=== PATIENT | female | born 1950 | race Caucasian/White ===

== ENCOUNTER 2023-08-25 20:38 | Emergency (ER) | payer BC ==
--- NOTE | 2023-08-25 20:52 | ED Physician Documentation ---
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 He had a fall this morning and fell on top of her. She did hit her head, but denies any headache. Progressively though through the day she has had foot and ankle pain and she cannot bear weight. No other injuries. PD PAST MEDICAL HISTORY - Past Medical History Past Medical History: Yes Neuro: Multiple sclerosis - Past Surgical History Past Surgical History: No - Allergies Allergies/Adverse Reactions: Allergies Allergy/AdvReac Type Severity Reaction Status Date / Time procaine [From Novocain] Allergy Dizziness Verified 08/25/23 20:46 Sulfa (Sulfonamide Allergy Rash Verified 08/25/23 20:46 Antibiotics) - Social History Does the pt smoke?: No Smoking Status: Never smoker PD ED PE NORMAL - Vitals Vital signs reviewed: Yes - General General: Alert and oriented X 3, No acute distress - Extremities Extremities: Other (Mild tenderness over the lateral malleolus of the left ankle and also tender over the calcaneus. The remainder of the foot is nontender as is the proximal fibula.) - Neuro Neuro: Alert and oriented X 3, Normal speech Results - Vitals Vitals: Vital Signs - 24 hr 08/25/23 08/25/23 20:43 21:52 Temperature 36.8 C 36.2 C L Heart Rate 96 88 Respiratory 20 16 Rate Blood Pressure 158/80 H 154/67 H O2 Saturation 100 98 Oxygen O2 Source Room air - Rads (name of study) Anle and calcaneus XR-see MDM Relevant Findings:: Final report received, EMP independent interpretation of test PD Medical Decision Making - ED course ED course: She presents with injury L ankle/heel. I felt imaging was neg, given crutches/boot. After discharge radiology said maybe distal fib frx. LVM with patient regarding this and gave phone number for ortho with recommended followup in ortho clinic ~1 week. Departure - Departure Disposition: 01 Home, Self Care Clinical Impression: Ankle injury Condition: Good Record reviewed to determine appropriate education?: Yes Instructions: ED Sprain Ankle W X Ray Comments: Tylenol and/or ibuprofen as needed for pain. Ice and elevate. Follow-up with your doctor in a week if not better, return for new or worsening symptoms. Forms: PCP List Discharge Date/Time: 08/25/23 21:52
[2023-08-25 21:58] VITALS: BP 154/67; O2SAT 98
--- NOTE | 2023-08-25 23:02 | XRAY Report ---
PROCEDURE: Ankle 3+V LT INDICATIONS: foot / ankle inj TECHNIQUE: 3 views of the ankle were acquired. COMPARISON: None. FINDINGS: Bones: Diffuse osteopenia. There is a transverse lucency over the distal aspect of the left medial m alleolus. This may represent possible nondisplaced fracture versus overlapping trabeculation. No sign ificant overlying soft tissue edema. No dislocations. Ankle mortise is normally aligned. No suspici ous bony lesions. Soft tissues: No tibiotalar joint effusion. Achilles tendon appears normal. IMPRESSION: Moderate diffuse osteopenia. Transverse lucency over the distal aspect of the left medial malleolus w hich may represent a nondisplaced fracture versus overlapping trabeculation as there is minimal overl nadine soft tissue swelling. Recommend clinical correlation for point tenderness in this region. Otherwise, if there is persistent clinical concern for a radiographically occult fracture, recommend immobilization and repeat imaging in 10 to 14 days. Reviewed by: Soren Trinidad MD on 08/25/2023 11:00 PM PDT Approved by: Soren Trinidad MD on 08/25/2023 11:00 PM PDT Station ID: [id number]
--- NOTE | 2023-08-25 23:04 | XRAY Report ---
PROCEDURE: Calcaneus 2+V LT INDICATIONS: foot / ankle inj TECHNIQUE: Two views of the calcaneus were acquired. COMPARISON: None. FINDINGS: Bones: Diffuse osteopenia. No definite fractures or dislocations. No suspicious bony lesions. Soft tissues: No suspicious calcifications. Achilles tendon appears normal. IMPRESSION: Diffuse osteopenia. No definite acute fractures seen . If there is persistent clinical concern for a radiographically occult fracture, recommend immobilizat ion and repeat imaging in 10 to 14 days. Reviewed by: Soren Trinidad MD on 08/25/2023 11:02 PM PDT Approved by: Soren Trinidad MD on 08/25/2023 11:02 PM PDT Station ID: [id number]
== END 2023-08-25 21:52 | disposition home or self-care (01) ==
LOC: ED 20:38
DX: S99.812A Other specified injuries of left ankle, initial encounter (principal); W50.0XXA Accidental hit or strike by another person, initial encounter; G35 Multiple sclerosis
CPT/HCPCS: 99283; 99284

== ENCOUNTER 2023-09-08 20:02 | Outpatient (CLI) | payer BC | END 2023-09-08 23:59 | disposition EMS.NT | LOC: EMS 20:02 | DX: R53.81 Other malaise (principal) ==

== ENCOUNTER 2023-10-13 12:31 | Outpatient (CLI) | payer BC ==
--- NOTE | 2023-10-13 16:53 | XRAY Report ---
PROCEDURE: Chest 2V INDICATIONS: LUNG CA TECHNIQUE: 2 views of the chest were acquired. COMPARISON: None. FINDINGS: Surgical changes and devices: None. Lungs and pleura: No pleural effusions or pneumothorax. Lungs are clear. COPD Mediastinum: Mediastinal contours appear normal. Heart size is normal. Bones and chest wall: No suspicious bony lesions. Convex left scoliosis of the visualized lumbar spi ne. Overlying soft tissues appear unremarkable. IMPRESSION: No acute cardiopulmonary process. Reviewed by: Lavonne Benitez MD, PhD on 10/13/2023 4:51 PM PDT Approved by: Lavonne Benitez MD, PhD on 10/13/2023 4:51 PM PDT Station ID: [id number]
== END 2023-10-13 12:32 | disposition home or self-care (01) ==
LOC: DI.N 12:31
PROVIDERS: ATTEND Family Medicine
DX: J44.9 Chronic obstructive pulmonary disease, unspecified (principal); R13.10 Dysphagia, unspecified; I10 Essential (primary) hypertension